=== PATIENT | female | born 1945 | race African-American/Black ===

== ENCOUNTER 2016-02-24 | Outpatient (CLI) | payer MEDICARE, MEDICAID | END 2016-02-24 11:41 | disposition short-term general hospital (02) | CPT/HCPCS: A0425; A0429 ==

== ENCOUNTER 2016-03-15 | Outpatient (CLI) | payer MEDICARE, MEDICAID | END 2016-03-15 04:11 | disposition short-term general hospital (02) | CPT/HCPCS: A0425; A0429; A0888 ==

== ENCOUNTER 2016-03-30 | Outpatient (CLI) | payer MEDICARE, MEDICAID | END 2016-03-30 20:34 | disposition EMS.NT | DX: M79.601 Pain in right arm (principal) ==

== ENCOUNTER 2016-04-16 15:32 | Emergency (ER) | payer MEDICARE, MEDICAID | END 2016-04-16 16:05 | disposition home or self-care (01) | DX: S00.83XA Contusion of other part of head, initial encounter (principal); W05.0XXA Fall from non-moving wheelchair, initial encounter; Z99.3 Dependence on wheelchair; M54.5 Low back pain; G89.29 Other chronic pain; I11.0 Hypertensive heart disease with heart failure; I50.9 Heart failure, unspecified; E11.9 Type 2 diabetes mellitus without complications; J44.9 Chronic obstructive pulmonary disease, unspecified; F17.200 Nicotine dependence, unspecified, uncomplicated; Z86.73 Personal history of transient ischemic attack (TIA), and cerebral infarction without residual deficits; Z86.718 Personal history of other venous thrombosis and embolism ==

== ENCOUNTER 2016-05-19 13:38 | Outpatient (CLI) | payer MEDICARE, MEDICAID | END 2016-05-19 13:39 | disposition critical access hospital (66) | DX: S99.912A Unspecified injury of left ankle, initial encounter (principal); W18.30XA Fall on same level, unspecified, initial encounter; Y92.019 Unspecified place in single-family (private) house as the place of occurrence of the external cause | CPT/HCPCS: A0425; A0429 ==

== ENCOUNTER 2016-05-19 13:57 | Emergency (ER) | payer MEDICARE, MEDICAID ==
[2016-05-19] MEDS ORDERED: ACETAMINOPHEN 325 MG TABLET PO STA (14:06)
[2016-05-19] MEDS ORDERED: ACETAMINOPHEN 325 MG TABLET PO ONE (14:10)
[2016-05-19] MEDS ORDERED: oxyCOD/ACETAMIN 5 MG/325 MG TABLET PO STA (15:23)
[2016-05-19] MEDS ORDERED: oxyCOD/ACETAMIN 5 MG/325 MG TABLET PO ONE (15:25)
== END 2016-05-19 18:07 | disposition home or self-care (01) ==
DX: S82.202A Unspecified fracture of shaft of left tibia, initial encounter for closed fracture (principal); S92.332A Displaced fracture of third metatarsal bone, left foot, initial encounter for closed fracture; S92.342A Displaced fracture of fourth metatarsal bone, left foot, initial encounter for closed fracture; S92.352A Displaced fracture of fifth metatarsal bone, left foot, initial encounter for closed fracture; M54.5 Low back pain; W05.0XXA Fall from non-moving wheelchair, initial encounter; L97.429 Non-pressure chronic ulcer of left heel and midfoot with unspecified severity; N63 Unspecified lump in breast; R93.7 Abnormal findings on diagnostic imaging of other parts of musculoskeletal system; I11.0 Hypertensive heart disease with heart failure; I50.9 Heart failure, unspecified; E11.9 Type 2 diabetes mellitus without complications; F17.200 Nicotine dependence, unspecified, uncomplicated; Z86.73 Personal history of transient ischemic attack (TIA), and cerebral infarction without residual deficits; Z86.718 Personal history of other venous thrombosis and embolism
CPT/HCPCS: 72100; 73590; 73610; 73630; 99283; 99284; A9270

== ENCOUNTER 2016-05-31 06:02 | Outpatient (CLI) | payer MEDICARE, MEDICAID | END 2016-05-31 06:03 | disposition short-term general hospital (02) | DX: R07.9 Chest pain, unspecified (principal); R06.02 Shortness of breath; R11.0 Nausea | CPT/HCPCS: A0425; A0427 ==

== ENCOUNTER 2016-06-16 03:41 | Outpatient (CLI) | payer MEDICARE, MEDICAID | END 2016-06-16 03:42 | disposition short-term general hospital (02) | LOC: EMS 03:41 | PROVIDERS: ATTEND Surgery | DX: R06.02 Shortness of breath (principal); L29.9 Pruritus, unspecified; Z99.2 Dependence on renal dialysis | CPT/HCPCS: A0425; A0429 ==

== ENCOUNTER 2016-07-12 08:34 | Outpatient (CLI) | payer MEDICARE, MEDICAID | END 2016-07-12 08:35 | disposition short-term general hospital (02) | LOC: EMS 08:34 | PROVIDERS: ATTEND Surgery | DX: M54.5 Low back pain (principal); R06.02 Shortness of breath; Z99.2 Dependence on renal dialysis | CPT/HCPCS: A0425; A0429 ==

== ENCOUNTER 2016-07-19 08:00 | Outpatient (CLI) | payer MEDICARE, MEDICAID | END 2016-07-19 08:01 | disposition home or self-care (01) | LOC: LAB.N 08:00 | PROVIDERS: ATTEND Internal Medicine Nephrology | DX: Z53.9 Procedure and treatment not carried out, unspecified reason (principal) | CPT/HCPCS: 36415; 86317; 86704; 87340 ==

== ENCOUNTER 2016-07-20 09:22 | Outpatient (CLI) | payer MEDICARE, MEDICAID | END 2016-07-20 09:23 | disposition short-term general hospital (02) | LOC: EMS 09:22 | PROVIDERS: ATTEND Surgery | DX: R53.1 Weakness (principal) | CPT/HCPCS: A0425; A0429 ==

== ENCOUNTER 2016-07-23 10:48 | Outpatient (CLI) | payer MEDICARE, MEDICAID | END 2016-07-23 10:49 | disposition short-term general hospital (02) | LOC: EMS 10:48 | PROVIDERS: ATTEND Surgery | DX: R53.1 Weakness (principal) | CPT/HCPCS: A0425; A0429 ==

== ENCOUNTER 2016-08-09 11:20 | Outpatient (CLI) | payer MEDICARE, MEDICAID | END 2016-08-09 11:21 | disposition EMS.NT | LOC: EMS 11:20 | PROVIDERS: ATTEND Surgery | DX: Z03.89 Encounter for observation for other suspected diseases and conditions ruled out (principal) ==

== ENCOUNTER 2016-08-14 15:03 | Outpatient (CLI) | payer MEDICARE, MEDICAID | END 2016-08-14 15:04 | disposition short-term general hospital (02) | LOC: EMS 15:03 | PROVIDERS: ATTEND Surgery | DX: R60.1 Generalized edema (principal); R53.1 Weakness; R53.83 Other fatigue | CPT/HCPCS: A0425; A0429 ==

== ENCOUNTER 2016-08-29 21:23 | Outpatient (CLI) | payer MEDICARE, MEDICAID | END 2016-08-29 21:24 | disposition short-term general hospital (02) | LOC: EMS 21:23 | PROVIDERS: ATTEND Surgery | DX: R06.02 Shortness of breath (principal); R53.1 Weakness | CPT/HCPCS: A0425; A0427; A0888 ==

== ENCOUNTER 2016-10-02 14:14 | Outpatient (CLI) | payer MEDICARE, MEDICAID | END 2016-10-02 14:15 | disposition short-term general hospital (02) | LOC: EMS 14:14 | PROVIDERS: ATTEND Surgery | DX: R06.00 Dyspnea, unspecified (principal); R11.2 Nausea with vomiting, unspecified; R19.7 Diarrhea, unspecified | CPT/HCPCS: A0425; A0429; A0888 ==

== ENCOUNTER 2016-10-15 05:34 | Outpatient (CLI) | payer MEDICARE, MEDICAID | END 2016-10-15 05:35 | disposition short-term general hospital (02) | LOC: EMS 05:34 | PROVIDERS: ATTEND Surgery | DX: R19.7 Diarrhea, unspecified (principal); Z99.2 Dependence on renal dialysis | CPT/HCPCS: A0425; A0429 ==

== ENCOUNTER 2016-10-27 10:10 | Outpatient (CLI) | payer MEDICARE, MEDICAID | END 2016-10-27 10:11 | disposition short-term general hospital (02) | LOC: EMS 10:10 | PROVIDERS: ATTEND Surgery | DX: R07.9 Chest pain, unspecified (principal); R11.2 Nausea with vomiting, unspecified; R19.7 Diarrhea, unspecified; Z99.2 Dependence on renal dialysis | CPT/HCPCS: A0425; A0429 ==

== ENCOUNTER 2016-10-29 04:43 | Outpatient (CLI) | payer MEDICARE, MEDICAID | END 2016-10-29 04:44 | disposition critical access hospital (66) | LOC: EMS 04:43 | PROVIDERS: ATTEND Surgery | DX: R06.02 Shortness of breath (principal) | CPT/HCPCS: A0425; A0427 ==

== ENCOUNTER 2016-11-08 23:40 | Outpatient (CLI) | payer MEDICARE, MEDICAID | END 2016-11-08 23:41 | disposition short-term general hospital (02) | LOC: EMS 23:40 | PROVIDERS: ATTEND Surgery | DX: R53.1 Weakness (principal); Z91.15 Patient's noncompliance with renal dialysis | CPT/HCPCS: A0425; A0429 ==

== ENCOUNTER 2016-11-10 15:46 | Outpatient (CLI) | payer MEDICARE, MEDICAID | END 2016-11-10 15:47 | disposition short-term general hospital (02) | LOC: EMS 15:46 | PROVIDERS: ATTEND Surgery | DX: R40.20 Unspecified coma (principal) | CPT/HCPCS: A0425; A0429 ==

== ENCOUNTER 2016-11-23 12:20 | Outpatient (CLI) | payer MEDICARE, MEDICAID | END 2016-11-23 12:21 | disposition EMS.NT | LOC: EMS 12:20 | PROVIDERS: ATTEND Surgery | DX: R06.02 Shortness of breath (principal) ==

== ENCOUNTER 2016-11-23 15:50 | Outpatient (CLI) | payer MEDICARE, MEDICAID | END 2016-11-23 15:51 | disposition short-term general hospital (02) | LOC: EMS 15:50 | PROVIDERS: ATTEND Surgery | DX: R11.2 Nausea with vomiting, unspecified (principal); R19.7 Diarrhea, unspecified | CPT/HCPCS: A0425; A0429; A0888 ==

== ENCOUNTER 2016-11-24 22:03 | Outpatient (CLI) | payer MEDICARE, MEDICAID | END 2016-11-24 22:04 | disposition short-term general hospital (02) | LOC: EMS 22:03 | PROVIDERS: ATTEND Surgery | DX: R11.2 Nausea with vomiting, unspecified (principal); R10.31 Right lower quadrant pain | CPT/HCPCS: A0425; A0429; A0888 ==

== ENCOUNTER 2016-11-26 10:54 | Outpatient (CLI) | payer MEDICARE, MEDICAID | END 2016-11-26 10:55 | disposition short-term general hospital (02) | LOC: EMS 10:54 | PROVIDERS: ATTEND Surgery | DX: R06.02 Shortness of breath (principal); R53.1 Weakness | CPT/HCPCS: A0425; A0429 ==

== ENCOUNTER 2016-12-16 00:40 | Outpatient (CLI) | payer MEDICARE, MEDICAID | END 2016-12-16 00:41 | disposition short-term general hospital (02) | LOC: EMS 00:40 | PROVIDERS: ATTEND Surgery | DX: R06.00 Dyspnea, unspecified (principal) | CPT/HCPCS: A0425; A0429; A0888 ==